=== PATIENT | male | born 1940 | race Caucasian/White ===

== ENCOUNTER 2017-07-26 03:07 | Emergency (ER) | payer OTHER ==
[2017-07-26] MEDS ORDERED: Magnesium Sulfate 2 GM/100 ML BAG ONE (03:17)
[2017-07-26] MEDS ORDERED: Albuterol Sulfate 2.5 mg/0.5 ml Neb ONE (03:19)
[2017-07-26 03:33] LABS: Base Excess-Venous 0.6 mmol/L (-30.0-30.0); O2 Tension (PvO2) 36.2 mmHg (35.0-45.0); T. Carbon Dioxide 29.7 mmol/L (1.0-85.0); pH (Venous) 7.315 (7.35-7.45); vO2 Saturation-calc 62.9 % (0.0-100.0)
[2017-07-26 03:41] LABS: #Basophils 0.1 thou/uL (0.0-0.2); #Eosinphils 0.9 thou/uL (0.0-0.7); #Lymphocytes 1.8 thou/uL (1.20-3.40); #Monocytes 0.6 thou/uL (0.11-0.59); %Basophils 1.5 % (0.0-1.0); %Eosinophils 13.6 % (0.0-10.0); %Lymphocytes 28.5 % (21.0-51.0); %Monocytes 9.5 % (0.0-10.0); %Neutrophils 46.9 % (42.0-75.0); Hemoglobin 12.2 g/dL (14.0-18.0); Mean Corpuscular HGB CONC 31.2 g/dL (32.0-36.0); Mean Corpuscular Hemoglobin 29.5 pg (27.0-31.0); Mean Corpuscular Volume 94.6 fl (80.0-94.0); Mean Platelet Volume 8.9 fL (7.4-10.4); Platelet Count 200 thou/uL (130-400); RBC Distribution Width 12.5 % (11.5-14.5); Red Blood Cell (RBC) Count 4.12 mill/uL (4.70-6.10); White Blood Cell (WBC) Count 6.4 thou/uL (4.8-10.8)
[2017-07-26 03:46] LABS: INR-International Normal Ratio 1.2; PTT 32.1 SEC (22.9-36.1); Prothrombin Time 15.8 SEC (12.0-14.7)
[2017-07-26 04:02] LABS: ALT (SGPT) 12 U/L (8-55); AST (SGOT) 16 U/L (5-34); Alkaline Phosphatase 78 U/L (40-150); Anion Gap 12 mmol/L (10-20); BUN (Urea Nitrogen) 24 mg/dL (8.4-25.7); Bilirubin, Total 0.7 mg/dL (0.2-1.2); Calc. Creatinine Clearance 0 mL/min (70-130); Calcium 10.2 mg/dL (7.8-10.44); Carbon Dioxide 26 mmol/L (23-31); Chloride 103 mmol/L (98-107); Estimated GFR-MDRD 40; Globulin 3.3 g/dL (2.4-3.5); Glucose 338 mg/dL (83-110); Potassium 5.3 mmol/L (3.5-5.1); Protein, Total 7.3 g/dL (5.8-8.1); Sodium 136 mmol/L (136-145)
[2017-07-26 04:05] LABS: CKMB 5.6 ng/mL (0-6.6); Troponin I 0.018 ng/mL (< 0.028)
[2017-07-26 04:22] LABS: Lactic Acid 1.2 mmol/L (0.5-2.2)
[2017-07-26] MEDS ORDERED: Piperacillin/Tazobactam 3.375 GM in Sodium Chloride 0.9% 100 ML IVPB SCH (05:00)
[2017-07-26] MEDS ORDERED: Albuterol Sulfate 2.5 mg/3 ml Neb ONE ×3 (07:06→08:21)
--- NOTE | 2017-07-26 07:41 | RAD ---
PORTABLE CHEST 1 VIEW: DATE: 07/26/17. TIME: 3:42 a.m. HISTORY: Shortness of breath. FINDINGS: Comparison is made with the exam of 06/23/14. There is continued blunting of the left lateral costophrenic angle since 06/23/13. A left-sided pacing device has been placed in the interim. The heart size is prominent. Pleural enmanuel cifications on the left are again seen. No focal areas of consolidation, pneumothoraces, or pleural effusions are identified. IMPRESSION: No acute process. POS: [facility]
== END 2017-07-26 10:52 | disposition short-term general hospital (02) ==
LOC: ERS 03:07
DX: J44.1 Chronic obstructive pulmonary disease with (acute) exacerbation (principal); J44.0 Chronic obstructive pulmonary disease with (acute) lower respiratory infection; J18.9 Pneumonia, unspecified organism; I48.91 Unspecified atrial fibrillation; E03.9 Hypothyroidism, unspecified; I13.0 Hypertensive heart and chronic kidney disease with heart failure and stage 1 through stage 4 chronic kidney disease, or unspecified chronic kidney disease; E11.22 Type 2 diabetes mellitus with diabetic chronic kidney disease; N18.9 Chronic kidney disease, unspecified; I50.9 Heart failure, unspecified; F17.210 Nicotine dependence, cigarettes, uncomplicated; Z79.4 Long term (current) use of insulin; Z79.82 Long term (current) use of aspirin; Z79.899 Other long term (current) drug therapy; Z79.01 Long term (current) use of anticoagulants
CPT/HCPCS: 71045; 80053; 82330; 82553; 82803; 83605; 83880; 84484; 85025; 85610; 85730; 93005; 94640; 94644; 96365; 96367; J2543; J3475; J7050; J7611; J7620

== ENCOUNTER 2018-01-13 15:25 | Emergency (ER) | payer OTHER ==
[2018-01-13 16:15] LABS: #Basophils 0.1 thou/uL (0.0-0.2); #Eosinphils 1.1 thou/uL (0.0-0.7); #Lymphocytes 1.5 thou/uL (1.20-3.40); #Monocytes 0.4 thou/uL (0.11-0.59); #Neutrophils 3.2 thou/uL (1.40-6.50); %Basophils 0.9 % (0.0-1.0); %Eosinophils 18.2 % (0.0-10.0); %Lymphocytes 23.3 % (21.0-51.0); %Monocytes 6.3 % (0.0-10.0); %Neutrophils 51.3 % (42.0-75.0); Hemoglobin 12.9 g/dL (14.0-18.0); Mean Corpuscular HGB CONC 32.7 g/dL (32.0-36.0); Mean Corpuscular Hemoglobin 29.8 pg (27.0-31.0); Mean Platelet Volume 8.3 fL (7.4-10.4); Platelet Count 193 thou/uL (130-400); RBC Distribution Width 12.9 % (11.5-14.5); Red Blood Cell (RBC) Count 4.33 mill/uL (4.70-6.10); White Blood Cell (WBC) Count 6.2 thou/uL (4.8-10.8)
--- NOTE | 2018-01-13 16:31 | RAD ---
PORTABLE CHEST 1 VIEW: Date: 01/13/18 Time: 1553 hours HISTORY: Dyspnea. FINDINGS: Comparison made with exam of 07/26/17. Left-sided pacemaker device remains in place. Heart size prominent but stable. Pleural calcifications on the left are redemonstrated with continued blunting of the left costophrenic angle. No focal area s of consolidation, pneumothoraces, or large effusions are identified. IMPRESSION: No acute process. POS: [facility]
[2018-01-13 16:38] LABS: ALT (SGPT) 23 U/L (8-55); AST (SGOT) 27 U/L (5-34); Alkaline Phosphatase 77 U/L (40-150); Anion Gap 13 mmol/L (10-20); BUN (Urea Nitrogen) 21 mg/dL (8.4-25.7); Bilirubin, Total 0.5 mg/dL (0.2-1.2); Calc. Creatinine Clearance 0 mL/min (70-130); Calcium 10.3 mg/dL (7.8-10.44); Carbon Dioxide 26 mmol/L (23-31); Chloride 106 mmol/L (98-107); Estimated GFR-MDRD 38; Globulin 3.9 g/dL (2.4-3.5); Glucose 79 mg/dL (83-110); Potassium 4.7 mmol/L (3.5-5.1); Protein, Total 7.9 g/dL (5.8-8.1); Sodium 140 mmol/L (136-145)
[2018-01-13 16:42] LABS: CKMB 5.4 ng/mL (0-6.6); Troponin I Less than 0.010 ng/mL (< 0.028)
[2018-01-13 17:00] LABS: CO2 Tension 49.9 mmHg (35.0-45.0); pH, Arterial 7.36 (7.35-7.45)
[2018-01-13 17:01] LABS: Actual Bicarbonate (HCO3a) 27.6 mEq/L (22-28); Base Excess (BEa) 1.5 mEq/L (-2.0 to +3.0); Carboxyhemoglobin (COHb) 1.3 gm% (0.0-3.0); Hemoglobin (Hb) 12.4 g/dL (14.0-18.0); O2 Tension (PaO2) 67.4 mmHg (> 70.0)
[2018-01-13 17:02] LABS: Analyzer IN Cardio ER; Calcium, Ionized 1.3 mmol/L (1.12-1.30); Potassium - ABG Lab 4.6 mmol/L (3.70-5.30); Puncture Site LRA
--- NOTE | 2018-01-25 11:50 | EKG ---
Test Reason : Blood Pressure : / mmHG Vent. Rate : 074 BPM Atrial Rate : 068 BPM P-R Int : 000 ms QRS Dur : 104 ms QT Int : 404 ms P-R-T Axes : 000 094 080 degrees QTc Int : 448 ms Atrial fibrillation with frequent electronic V- paced beats Rightward axis Borderline ECG No ST-T changes Confirmed by ROSS VILLALTA ([id number]), acquisition editor JEFE LAWSON ([id number]) on 01/25/2018 11:49:40 AM Referred By: Confirmed By:ROSS VILLALTA
== END 2018-01-13 18:01 | disposition home or self-care (01) ==
LOC: ERS 15:25
DX: J44.1 Chronic obstructive pulmonary disease with (acute) exacerbation (principal); E11.9 Type 2 diabetes mellitus without complications; I11.0 Hypertensive heart disease with heart failure; I50.9 Heart failure, unspecified; E03.9 Hypothyroidism, unspecified; I48.91 Unspecified atrial fibrillation; Z87.891 Personal history of nicotine dependence
CPT/HCPCS: 36415; 36416; 71045; 80053; 82553; 82805; 83880; 84484; 85025; 93005; 94640; J7620

== ENCOUNTER 2022-12-31 21:50 | Inpatient (IN) | payer OTHER ==
[2023-01-01] MEDS ORDERED: Glucagon 1 MG/ML KIT IM PRN (02:02)
[2023-01-01] MEDS ORDERED: HumaLOG 300 UNITS/3 ML VIAL SC PRN (02:02)
[2023-01-01] MEDS ORDERED: Dextrose 50% Abboject 50 ML SYRINGE SLOW IVP PRN (02:02)
[2023-01-01] MEDS ORDERED: Dextrose 5% in Water 1,000 ML IV PRN (02:02)
[2023-01-01 02:06] LABS: Troponin I 0.034 ng/mL (< 0.028)
[2023-01-01 02:26] VITALS: BMI 30.2
[2023-01-01 05:08] LABS: #Eosinphils 0.2 thou/uL (0.0-0.7); #Monocytes 0.7 thou/uL (0.11-0.59); #Neutrophils 3.2 thou/uL (1.40-6.50); %Basophils 0.5 % (0.0-1.0); %Eosinophils 3.1 % (0.0-10.0); %Lymphocytes 24.5 % (21.0-51.0); %Neutrophils 58.5 % (42.0-75.0); Hemoglobin 9.1 g/dL (14.0-18.0); Mean Corpuscular HGB CONC 31.3 g/dL (32.0-36.0); Mean Corpuscular Hemoglobin 28.3 pg (27.0-31.0); Mean Corpuscular Volume 90.4 fl (78.0-98.0); Mean Platelet Volume 11.1 fL (7.4-10.4); Platelet Count 216 10x3/uL (130-400); Red Blood Cell (RBC) Count 3.22 mill/uL (4.70-6.10); White Blood Cell (WBC) Count 5.5 10x3/uL (4.8-10.8)
[2023-01-01 05:33] LABS: ALT (SGPT) Less than 7 U/L (8-55); AST (SGOT) 18 U/L (5-34); Alkaline Phosphatase 113 U/L (40-110); Anion Gap 9 mmol/L (10-20); BUN (Urea Nitrogen) 16 mg/dL (8.4-25.7); Bilirubin, Total 0.8 mg/dL (0.2-1.2); Calc. Creatinine Clearance 58 mL/min (70-130); Calcium 9.2 mg/dL (7.8-10.44); Carbon Dioxide 32 mmol/L (23-31); Chloride 107 mmol/L (98-107); Estimated GFR 41; Globulin 3.3 g/dL (2.4-3.5); Glucose 143 mg/dL (83-110); Potassium 3.9 mmol/L (3.5-5.1); Protein, Total 6.3 g/dL (5.8-8.1); Sodium 144 mmol/L (136-145)
[2023-01-01] MEDS: Furosemide 20 MG/2 ML VIAL SLOW IVP SCH ×2 (06:23→13:40)
[2023-01-01] MEDS ORDERED: Non-Formulary Item 1 EACH (Albuterol Sulfate [Proair Digihaler] 90 MCG Aer.Pw.Bas) IH PRN (08:49)
[2023-01-01] MEDS ORDERED: Non-Formulary Item 1 EACH (Lactulose 10 Gm/15ml Oral Sol 10 GM/15 ML Ml) PO PRN (08:49)
[2023-01-01] MEDS ORDERED: Non-Formulary Item 1 EACH (Ferrous Sulfate [Ferrous Sulfate] 325 MG Tab) PO SCH (09:00)
[2023-01-01] MEDS ORDERED: Non-Formulary Item 1 EACH (Insulin Detemir [Levemir] 100 UNIT/ML Vial) SQ SCH (09:00)
[2023-01-01] MEDS ORDERED: Aspirin 325 MG TAB PO SCH (09:00)
[2023-01-01] MEDS ORDERED: Non-Formulary Item 1 EACH (Tiotropium [Spiriva Handihaler] 18 MCG Box) INH SCH (09:00)
[2023-01-01] MEDS ORDERED: Warfarin Sodium 7.5 MG TAB PO SCH ×2 (09:00→17:00)
[2023-01-01] MEDS ORDERED: Levothyroxine Sodium 100 MCG TAB PO SCH (09:00)
[2023-01-01] MEDS ORDERED: Albuterol 200 PUFF (6.7GM INHALER) INH PRN (09:25)
[2023-01-01] MEDS: HYDROcodone/Acetaminophen 5/325 mg Tablet PO PRN ×2 (09:37→20:49)
[2023-01-01] MEDS: Folic Acid 1 MG TAB PO SCH (09:37)
[2023-01-01] MEDS: Azithromycin 250 MG TAB PO SCH (09:40)
[2023-01-01] MEDS: Carvedilol 25 MG TAB PO SCH ×2 (09:40→20:43)
[2023-01-01] MEDS: Atorvastatin Calcium 40 MG TAB PO SCH (09:40)
[2023-01-01] MEDS: cefTRIAXone\\ROCEPHIN 1 GM in Sodium Chloride 0.9% 100 ML IVPB SCH (09:40)
[2023-01-01 11:17] LABS: INR-International Normal Ratio 1.4; Prothrombin Time 17.8 sec (12.0-14.7)
[2023-01-01] MEDS: HumaLOG 300 UNITS/3 ML VIAL SC PRN ×2 (11:42→17:49)
[2023-01-01] MEDS: Ipratropium Bromide 2.5 ml Neb NEB SCH ×2 (13:47→18:30)
[2023-01-01] MEDS: Warfarin Sodium 5 MG TAB PO SCH (17:04)
[2023-01-01 17:28] LABS: Glucose 300 mg/dL (83-110)
[2023-01-01] MEDS: Terazosin HCl 5 MG CAP PO SCH (20:43)
[2023-01-01] MEDS: Insulin Glargine 30 UNITS/0.3 ML VIAL SC SCH (20:44)
[2023-01-01 21:47] LABS: Glucose 182 mg/dL (83-110)
[2023-01-02] MEDS: Ipratropium Bromide 2.5 ml Neb NEB SCH ×4 (00:45→18:43)
[2023-01-02 05:36] LABS: Hemoglobin 9.3 g/dL (14.0-18.0); Mean Corpuscular HGB CONC 30.5 g/dL (32.0-36.0); Mean Corpuscular Volume 91.9 fl (78.0-98.0); Mean Platelet Volume 11.1 fL (7.4-10.4); Platelet Count 217 10x3/uL (130-400); RBC Distribution Width 13.2 % (11.5-14.5); Red Blood Cell (RBC) Count 3.32 mill/uL (4.70-6.10); White Blood Cell (WBC) Count 5.6 10x3/uL (4.8-10.8)
[2023-01-02 05:49] LABS: INR-International Normal Ratio 1.4; Prothrombin Time 17.7 sec (12.0-14.7)
[2023-01-02 05:56] LABS: Anion Gap 12 mmol/L (10-20); BUN (Urea Nitrogen) 20 mg/dL (8.4-25.7); Calc. Creatinine Clearance 48 mL/min (70-130); Calcium 8.7 mg/dL (7.8-10.44); Carbon Dioxide 31 mmol/L (23-31); Chloride 100 mmol/L (98-107); Estimated GFR 35; Glucose 170 mg/dL (83-110); Potassium 4.3 mmol/L (3.5-5.1); Sodium 139 mmol/L (136-145)
[2023-01-02 06:09] LABS: Glucose 171 mg/dL (83-110)
[2023-01-02] MEDS: Furosemide 20 MG/2 ML VIAL SLOW IVP SCH ×2 (06:23→14:06)
[2023-01-02] MEDS: Levothyroxine 150 MCG TAB PO SCH (06:23)
[2023-01-02] MEDS: Atorvastatin Calcium 40 MG TAB PO SCH (08:59)
[2023-01-02] MEDS: Carvedilol 25 MG TAB PO SCH ×2 (09:00→20:16)
[2023-01-02] MEDS: Azithromycin 250 MG TAB PO SCH (09:00)
[2023-01-02] MEDS: Insulin Glargine 30 UNITS/0.3 ML VIAL SC SCH ×2 (09:00→20:17)
[2023-01-02] MEDS: Ferrous Sulfate 325 MG TAB PO SCH (09:00)
[2023-01-02] MEDS: Folic Acid 1 MG TAB PO SCH (09:00)
[2023-01-02] MEDS: cefTRIAXone\\ROCEPHIN 1 GM in Sodium Chloride 0.9% 100 ML IVPB SCH (09:06)
[2023-01-02] MEDS: HYDROcodone/Acetaminophen 5/325 mg Tablet PO PRN ×2 (11:14→20:16)
[2023-01-02] MEDS: HumaLOG 300 UNITS/3 ML VIAL SC PRN ×2 (11:15→17:24)
[2023-01-02] MEDS: Warfarin Sodium 5 MG TAB PO SCH (16:13)
[2023-01-02] MEDS: Terazosin HCl 5 MG CAP PO SCH (20:16)
[2023-01-03] MEDS: Ipratropium Bromide 2.5 ml Neb NEB SCH ×4 (01:36→18:42)
[2023-01-03 04:40] LABS: INR-International Normal Ratio 1.5; Prothrombin Time 19.1 sec (12.0-14.7)
[2023-01-03] MEDS: Furosemide 20 MG/2 ML VIAL SLOW IVP SCH ×2 (05:15→14:52)
[2023-01-03] MEDS: Levothyroxine 150 MCG TAB PO SCH (05:15)
[2023-01-03] MEDS: Folic Acid 1 MG TAB PO SCH (10:05)
[2023-01-03] MEDS: Ferrous Sulfate 325 MG TAB PO SCH (10:05)
[2023-01-03] MEDS: Azithromycin 250 MG TAB PO SCH (10:05)
[2023-01-03] MEDS: Atorvastatin Calcium 40 MG TAB PO SCH (10:05)
[2023-01-03] MEDS: Insulin Glargine 30 UNITS/0.3 ML VIAL SC SCH ×2 (10:05→20:55)
[2023-01-03] MEDS: Carvedilol 25 MG TAB PO SCH ×2 (10:05→20:56)
[2023-01-03] MEDS: cefTRIAXone\\ROCEPHIN 1 GM in Sodium Chloride 0.9% 100 ML IVPB SCH (11:38)
[2023-01-03] MEDS: HumaLOG 300 UNITS/3 ML VIAL SC PRN (18:07)
[2023-01-03] MEDS: Warfarin Sodium 7.5 MG TAB PO SCH (18:08)
[2023-01-03] MEDS: Terazosin HCl 5 MG CAP PO SCH (20:55)
[2023-01-04] MEDS: Ipratropium Bromide 2.5 ml Neb NEB SCH ×4 (01:02→18:38)
[2023-01-04 04:46] LABS: INR-International Normal Ratio 1.4; Prothrombin Time 18.2 sec (12.0-14.7)
[2023-01-04] MEDS: Furosemide 20 MG/2 ML VIAL SLOW IVP SCH (06:18)
[2023-01-04] MEDS: Levothyroxine 150 MCG TAB PO SCH (06:18)
[2023-01-04] MEDS: Folic Acid 1 MG TAB PO SCH (10:04)
[2023-01-04] MEDS: Carvedilol 25 MG TAB PO SCH ×2 (10:04→20:06)
[2023-01-04] MEDS: Ferrous Sulfate 325 MG TAB PO SCH (10:04)
[2023-01-04] MEDS: Atorvastatin Calcium 40 MG TAB PO SCH (10:04)
[2023-01-04] MEDS: Azithromycin 250 MG TAB PO SCH (10:05)
[2023-01-04] MEDS: Insulin Glargine 30 UNITS/0.3 ML VIAL SC SCH ×2 (10:05→20:09)
[2023-01-04] MEDS: cefTRIAXone\\ROCEPHIN 1 GM in Sodium Chloride 0.9% 100 ML IVPB SCH (10:05)
[2023-01-04] MEDS: Furosemide 40 MG TAB PO SCH (15:02)
[2023-01-04] MEDS: HumaLOG 300 UNITS/3 ML VIAL SC PRN (17:37)
[2023-01-04] MEDS: Warfarin Sodium 7.5 MG TAB PO SCH (17:39)
[2023-01-04] MEDS: Amoxicillin/Potassium Clav 500 MG TAB PO SCH (20:06)
[2023-01-04] MEDS: Terazosin HCl 5 MG CAP PO SCH (20:06)
[2023-01-05] MEDS: Ipratropium Bromide 2.5 ml Neb NEB SCH ×4 (00:17→18:40)
[2023-01-05 05:13] LABS: #Eosinphils 0.1 thou/uL (0.0-0.7); #Monocytes 1.1 thou/uL (0.11-0.59); #Neutrophils 5.7 thou/uL (1.40-6.50); %Basophils 0.5 % (0.0-1.0); %Eosinophils 0.9 % (0.0-10.0); %Lymphocytes 13.8 % (21.0-51.0); %Monocytes 13.6 % (0.0-10.0); %Neutrophils 70.8 % (42.0-75.0); Hemoglobin 9.3 g/dL (14.0-18.0); Mean Corpuscular HGB CONC 30.4 g/dL (32.0-36.0); Mean Corpuscular Hemoglobin 28.1 pg (27.0-31.0); Mean Corpuscular Volume 92.4 fl (78.0-98.0); Mean Platelet Volume 11.7 fL (7.4-10.4); Platelet Count 166 10x3/uL (130-400); RBC Distribution Width 13.5 % (11.5-14.5); Red Blood Cell (RBC) Count 3.31 mill/uL (4.70-6.10)
[2023-01-05 05:18] LABS: INR-International Normal Ratio 1.7; Prothrombin Time 20.4 sec (12.0-14.7)
[2023-01-05] MEDS: Levothyroxine 150 MCG TAB PO SCH (05:36)
[2023-01-05 05:58] LABS: Anion Gap 12 mmol/L (10-20); BUN (Urea Nitrogen) 33 mg/dL (8.4-25.7); Calc. Creatinine Clearance 44 mL/min (70-130); Calcium 8.9 mg/dL (7.8-10.44); Carbon Dioxide 33 mmol/L (23-31); Chloride 99 mmol/L (98-107); Estimated GFR 32; Glucose 128 mg/dL (83-110); Potassium 4.1 mmol/L (3.5-5.1); Sodium 140 mmol/L (136-145)
[2023-01-05] MEDS ORDERED: traMADol HCl 50 MG TAB PO PRN (10:15)
[2023-01-05] MEDS: Ferrous Sulfate 325 MG TAB PO SCH (11:20)
[2023-01-05] MEDS: Carvedilol 25 MG TAB PO SCH ×2 (11:20→21:21)
[2023-01-05] MEDS: Furosemide 40 MG TAB PO SCH ×2 (11:21→15:45)
[2023-01-05] MEDS: Amoxicillin/Potassium Clav 500 MG TAB PO SCH ×2 (11:21→21:24)
[2023-01-05] MEDS: Atorvastatin Calcium 40 MG TAB PO SCH (11:21)
[2023-01-05] MEDS: Folic Acid 1 MG TAB PO SCH (11:21)
[2023-01-05] MEDS: Insulin Glargine 30 UNITS/0.3 ML VIAL SC SCH ×2 (11:22→21:21)
[2023-01-05] MEDS: HYDROcodone/Acetaminophen 5/325 mg Tablet PO PRN (11:28)
[2023-01-05] MEDS: Warfarin Sodium 10 MG TAB PO SCH (18:15)
[2023-01-05] MEDS: Terazosin HCl 5 MG CAP PO SCH (21:21)
[2023-01-06] MEDS: Ipratropium Bromide 2.5 ml Neb NEB SCH ×4 (00:26→18:51)
[2023-01-06] MEDS: Acetaminophen 325 MG TAB PO PRN ×2 (05:32→22:11)
[2023-01-06] MEDS: Levothyroxine 150 MCG TAB PO SCH (05:32)
[2023-01-06 05:43] LABS: INR-International Normal Ratio 1.9; Prothrombin Time 22.8 sec (12.0-14.7)
[2023-01-06 08:01] LABS: Glucose 138 mg/dL (83-110)
[2023-01-06] MEDS: Carvedilol 25 MG TAB PO SCH ×2 (10:55→22:11)
[2023-01-06] MEDS: Atorvastatin Calcium 40 MG TAB PO SCH (10:55)
[2023-01-06] MEDS: Folic Acid 1 MG TAB PO SCH (10:55)
[2023-01-06] MEDS: Insulin Glargine 30 UNITS/0.3 ML VIAL SC SCH ×2 (10:55→22:12)
[2023-01-06] MEDS: Ferrous Sulfate 325 MG TAB PO SCH (10:55)
[2023-01-06] MEDS: Furosemide 40 MG TAB PO SCH ×2 (10:55→12:42)
[2023-01-06 12:29] LABS: Glucose 132 mg/dL (83-110)
[2023-01-06] MEDS: Amoxicillin/Potassium Clav 500 MG TAB PO SCH ×2 (12:41→22:12)
[2023-01-06] MEDS: Warfarin Sodium 10 MG TAB PO SCH (17:13)
[2023-01-06] MEDS: HumaLOG 300 UNITS/3 ML VIAL SC PRN (17:14)
[2023-01-06 17:25] LABS: Glucose 216 mg/dL (83-110)
[2023-01-06 21:30] LABS: Glucose 218 mg/dL (83-110)
[2023-01-06] MEDS: Senokot 8.6 MG TAB PO PRN (22:11)
[2023-01-06] MEDS: Terazosin HCl 5 MG CAP PO SCH (22:11)
[2023-01-07] MEDS: Ipratropium Bromide 2.5 ml Neb NEB SCH ×4 (00:26→18:39)
[2023-01-07 04:35] LABS: INR-International Normal Ratio 2.5; Prothrombin Time 28.5 sec (12.0-14.7)
[2023-01-07] MEDS: Levothyroxine 150 MCG TAB PO SCH (05:37)
[2023-01-07] MEDS: Insulin Glargine 30 UNITS/0.3 ML VIAL SC SCH (09:34)
[2023-01-07] MEDS: Carvedilol 25 MG TAB PO SCH ×2 (09:35→20:40)
[2023-01-07] MEDS: Ferrous Sulfate 325 MG TAB PO SCH (09:35)
[2023-01-07] MEDS: Amoxicillin/Potassium Clav 500 MG TAB PO SCH ×2 (09:35→20:41)
[2023-01-07] MEDS: Atorvastatin Calcium 40 MG TAB PO SCH (09:36)
[2023-01-07] MEDS: Folic Acid 1 MG TAB PO SCH (09:36)
[2023-01-07] MEDS: Furosemide 40 MG TAB PO SCH ×2 (09:36→15:21)
[2023-01-07] MEDS: Warfarin Sodium 10 MG TAB PO SCH (17:04)
[2023-01-07] MEDS: HumaLOG 300 UNITS/3 ML VIAL SC PRN (17:31)
[2023-01-07] MEDS: Terazosin HCl 5 MG CAP PO SCH (20:40)
[2023-01-07] MEDS: Senokot 8.6 MG TAB PO PRN (20:41)
[2023-01-07] MEDS: Acetaminophen 325 MG TAB PO PRN (20:42)
[2023-01-07] MEDS ORDERED: Insulin Glargine 30 UNITS/0.3 ML VIAL SC SCH (21:00)
[2023-01-08 00:01] VITALS: BP 131/63; TEMP 98.4
[2023-01-08] MEDS: Ipratropium Bromide 2.5 ml Neb NEB SCH (00:39)
== END 2023-01-08 01:35 | DRG 177 ==
LOC: EEVIPCON → 2NO 21:50
PROVIDERS: ADMIT Internal Medicine; ATTEND Family Medicine
DX: J69.0 Pneumonitis due to inhalation of food and vomit (principal); I50.23 Acute on chronic systolic (congestive) heart failure; J96.01 Acute respiratory failure with hypoxia; I13.0 Hypertensive heart and chronic kidney disease with heart failure and stage 1 through stage 4 chronic kidney disease, or unspecified chronic kidney disease; N17.9 Acute kidney failure, unspecified; E78.5 Hyperlipidemia, unspecified; N18.30 Chronic kidney disease, stage 3 unspecified; N40.0 Benign prostatic hyperplasia without lower urinary tract symptoms; E03.9 Hypothyroidism, unspecified; R53.81 Other malaise; Z79.01 Long term (current) use of anticoagulants; Z79.51 Long term (current) use of inhaled steroids; Z79.4 Long term (current) use of insulin; Z79.899 Other long term (current) drug therapy; Z79.890 Hormone replacement therapy; E11.22 Type 2 diabetes mellitus with diabetic chronic kidney disease; J44.9 Chronic obstructive pulmonary disease, unspecified; E66.9 Obesity, unspecified; Z87.891 Personal history of nicotine dependence
CPT/HCPCS: 36415; 36416; 36600; 71045; 80053; 82553; 82805; 82947; 83605; 83880; 84145; 84484; 85025; 85027; 85610; 85730; 93005; 93010; 93306; 93798; 94640; 94760; 96374; 96375; 97139; J0692; J0696; J1815; J1940; J3370; J3490